=== PATIENT | female | born 2000 | race Caucasian/White ===

== ENCOUNTER → 2021-05-26 15:59 | Outpatient (CLI) | payer OTHER, SELFPAY ==
--- NOTE | 2021-05-26 | DI.US.S_ITS ---
PROCEDURE: US OB >= 14 WEEKS FETUS INDICATIONS: 20 WEEK ANATOMY SCAN OUTSIDE/PRIOR DATING DATA: Last menstrual period (LMP): January 04, 2021. LMP-based estimated date of delivery (BRENDA): October 11, 2021. First dating scan (date and location): May 26, 2021. Estimated date of delivery (BRENDA) from first dating scan: October 13, 2021. TECHNIQUE: Real-time scanning was performed of the fetus, with image documentation and biometric measurements. Endovaginal scanning: Perform COMPARISON: None. FINDINGS: General: A single living intrauterine gestation is present. Presentation: Variable Placenta: Placental position is posterior, without previa. Amniotic fluid index: 11 point cm, normal range is 5-24 cm. heart rate: 163 beats per minute. Maternal cervical canal: Closed and 4.0 cm long. Normal lower limit is 2.5 cm. biometrics: Biparietal diameter: 19 weeks 3 days Head circumference: 20 weeks 0 days Abdominal circumference: 20 weeks 0 days Femur length: 20 weeks 2 days Estimated gestational age from initial scan: not applicable. Composite gestational age from present scan: 20 weeks 0 days to ultrasound BRENDA of October 13, 2021. Estimated weight and percentile: 331 grams; 34th percentile. Measurement variability for biometric dating: +/- 7 days from 14 weeks to 15 weeks 6 days gestation, +/- 10 days from 16 weeks to 21 weeks 6 days gestation, +/- 2 weeks from 22 weeks to 27 weeks 6 days gestation, +/- 3 weeks for 28 weeks gestation or later. weight reference: 4500 g or EFW >90/95% is considered macrosomia or large for gestational age. EFW <10% is small for gestational age. EFW 5% or less is considered intra-uterine growth restriction. Anatomic survey: Neuro: Ventricles are non-dilated at less than 10 mm. Cisterna magna is normal at 3-11 mm. Cerebellum is normal in size and morphology. Nuchal skin fold: Normal at less than 6 mm between 14-21 weeks gestational age. Face: Nose and lips, facial profile are normal. Spine: No evidence for spina bifida. Heart: 4-chambered heart is present. The ventricular outflow tracts are suboptimally visualized and cannot be evaluated.. Diaphragm: Diaphragm is intact. Stomach: Left-sided stomach is present. Kidneys: No hydronephrosis. Normal is less than 5 mm in 2nd trimester, less than 7 mm in 3rd trimester. Cord: 3-vessel cord. Placental cord insertion is poorly visualized and cannot be evaluated. Bladder: Normal in size. Extremities: All 4 extremities identified. IMPRESSION: 1. Single living intrauterine with ultrasound estimated gestational age of 20 weeks 0 days corresponding to ultrasound BRENDA of October 13, 2021. 2. cardiac outflow tracts and placental insertion of umbilical cord not well visualized and cannot be evaluated. Recommend short-term follow-up limited obstetrical ultrasound. Otherwise, normal anatomic survey. Dictated by: Camila Lomeli MD, PhD on 05/27/2021 at 11:57 Approved by: Camila Lomeli MD, PhD on 05/27/2021 at 12:03
== END ==
PROVIDERS: Referring Provider Nurse Practitioner Obstetrics & Gynecology; Visit Provider Nurse Practitioner Obstetrics & Gynecology
DX: Z34.92 Encounter for supervision of normal pregnancy, unspecified, second trimester (principal); Z3A.20 20 weeks gestation of pregnancy
CPT/HCPCS: 76811

== ENCOUNTER → 2021-06-24 09:48 | Outpatient (CLI) | payer OTHER, SELFPAY ==
--- NOTE | 2021-06-24 | DI.US.S_ITS ---
PROCEDURE: US OB FOLLOW UP INDICATIONS: ANATOMY FOLLOW UP OUTSIDE/PRIOR DATING DATA: Last menstrual period (LMP): 01/04/2021 . LMP-based estimated date of delivery (BRENDA): 10/11/2021 . First dating scan (date and location): 05/26/2021 . Estimated date of delivery (BRENDA) from first dating scan: 10/13/2021 . TECHNIQUE: Real-time scanning was performed of the fetus, with image documentation and biometric measurements. Endovaginal scanning: No COMPARISON: [facility], OB >= 14 WEEKS FETUS, 05/26/2021, 16:14. FINDINGS: General: A single living intrauterine gestation is present. Presentation: Vertex. Placenta: Placental position is posterior , without previa. Amniotic fluid index: 15.4 cm, normal range is 5-24 cm. heart rate: 163 beats per minute. Maternal cervical canal: 4.4 cm long. Normal lower limit is 2.5 cm. Anatomic survey: Limited survey of anatomy currently includes normal four-chamber heart view, left and right ventricular outflow tracts, chest/diaphragm, stomach/abdomen, placental cord insertion, bilateral renal regions, and urinary bladder/pelvis. IMPRESSION: 1. Single living intrauterine gestation. 2. Limited normal survey of anatomy as above. Dictated by: Collins Castellanos M.D. on 06/24/2021 at 11:34 Approved by: Collins Castellanos M.D. on 06/24/2021 at 11:37
== END ==
PROVIDERS: Referring Provider Nurse Practitioner Obstetrics & Gynecology; Visit Provider Nurse Practitioner Obstetrics & Gynecology
DX: Z36.2 Encounter for other antenatal screening follow-up (principal)
CPT/HCPCS: 76816; 76817

== ENCOUNTER 2021-09-24 09:14 | Inpatient (IN) | payer OTHER, MEDICAID, SELFPAY ==
--- NOTE | 2021-09-24 09:47 | P.HPOB_ITS ---
OB HPI Date/Time Date of admission: 09/24/21 Date Patient Seen: 09/24/21 Time Patient Seen: 09:47 History of Present Condition Chief complaint: : 2 Para: 1 Estimated Date of Delivery: 10/11/21 Estimated Gestational Age (weeks): 37.4 Narrative: Sonia Singh is a 20 year old female @ [id number] by LMP and 10 wk US. Mild contractions all night getting stronger around 5am. +FM. No VB or LOF. Uncomplicated PN care w/ CNM. Canceled her appt last week as she was COVID positive at home. GBS unknown. Checked in clinic immediately prior to admission-> CE /-2, BBOW. History of Present care: good care, initiated at week # (10), number of visits (6) and pounds weight gain (23) Dating criteria: LMP confirmed by 1st trimester US Ultrasounds: normal mid trimester US Obstetrical complications: none Medical complications: none Preadmission Labs Blood type: A (+) positive -: Antibody screen: negative, GBS status: unknown, HBsAG: negative, HIV: negative and RPR/VDLR: negative -: Chlamydia screen: not detected and Gonorrhea screen: not detected -: Rubella: not immune and Varicella: not immune HCT: 31.6 HCAB: negative PAP: Normal Cell-free DNA: Negative, male 1 hr GTT: 107 Prior (ies) History: 03/30/2019: NSVB @ 38.5wks, 7#8oz male, epidural, 2nd degree Evaluation Evaluation Baseline heart rate: 140 Variability: Moderate (11-25) monitor accelerations: Present Monitor Decelerations: Absent Contraction Frequency (minutes): 2 Uterine Contraction Intensity: Strong/Firm Status: Category l Dilation (cm): 4 Effacement (%): 90 station: -2 Comments: BBOW [facility] Social History (Updated 09/24/21 @ 09:59 by Luciana Brown CNM) marital status: unmarried,living together number of children: 1 household members: significant other and children lives independently: Yes caregiver/support person: No Smoking Status: Never smoker Meds Home Medications and Allergies Allergies Allergy/AdvReac Type Severity Reaction Status Date / Time No Known Drug Allergies Allergy Verified 09/24/21 09:52 Review of Systems Review of Systems ROS: Yes All systems reviewed with the patient and are negative except as otherwise documented OB Exam Resp Effort & Inspection: normal respiratory effort Auscultation: clear to auscultation bilaterally Cardio Rate: regular rate Rhythm: regular rhythm Heart Sounds: S1 normal and S2 normal Presentation: vertex Assessment and Plan Assessment and Plan Assessment and Plan narrative: A: Term primipara Active labor GBS prophylaxis indicated Rubella NONimmune Cat I FHR P: Routine admit orders w/ rapid COVID and GBS. PCN for prophylaxis. Labor support, PRN. Reassess after adequate treatment or sooner, PRN. MMR vaccine PP.
[2021-09-24 10:17] LABS: Add Manual Diff / Slide Review NO; Basophils Absolute Auto 100 /uL (0-100); Eosinophils Absolute Auto 0 /uL (0-450); Eosinophils Percent Auto 0.1 % (2-4); Hematocrit 34.5 % (36-46); Hemoglobin 10.8 g/dL (12.0-16.0); Lymphocytes Absolute Auto 3300 /uL (1100-4500); Lymphocytes Percent Auto 24.7 % (25-40); Mean Corpuscular HGB Conc 31.5 % (30-36); Mean Corpuscular Hemoglobin 21.5 PG (26-34); Mean Corpuscular Volume 68.3 fL (80-100); Monocytes Absolute Auto 800 /uL (0-900); Monocytes Percent Auto 5.6 % (3-14); Neutrophils Absolute Auto 9200 /uL (1500-7000); Neutrophils Percent Auto 68.6 % (50-75); Platelet Count 297 X10^3/uL (150-400); Red Blood Cell Count 5.05 X10^6/uL (4.0-5.2); Red Cell Distribution Width 16.5 % (11.6-14.8); White Blood Cell Count 13.4 X10^3/uL (4.5-11.0)
[2021-09-24 10:31] LABS: COVID19 -Nasal RAPID POSITIVE (Negative)
[2021-09-24 10:34] LABS: Microcytosis 2+; Polychromasia 1+
[2021-09-24] MEDS: PENICILLIN G POTASSIUM 5,000,000 UNIT in DEXTROSE 5% IN WATER 250 ML IV (10:41)
[2021-09-24] MEDS: LACTATED RINGERS 1,000 ML 100 ML IV ×2 (10:42→12:43)
[2021-09-24 11:29] LABS: Strep Grp B PCR NEG for Grp B Strep
[2021-09-24] MEDS: CALCIUM CARBONATE 500 MG TAB 1000 MG PO (14:45)
--- NOTE | 2021-09-24 15:17 | P.PCNOB_ITS ---
Labor & Delivery Delivery date: 09/24/21 Intrapartal Events: None Cervical ripening method: none Induction method: none Delivery monitor: external FHT and external uterine Route of delivery: Episiotomy description: None L&D Laceration Description: None Estimated blood loss (mL): 150 Anesthesia Type: Epidural Narrative: Sonia progressed rapidly to 9cm, at which time progress slowed and she requested an epidural. Labor continued to progress slowly d/t OP positioning. Complete dilation and +1 station was noted at 1434. SROM, clear fluid during second push. NSVB of a vigorous baby boy in MARYCARMEN position over an intact perineum. There was no nuchal cord and the shoulders delivered without additional maneuvers. [place] was placed on maternal abdomen for drying and skin to skin. 10 units of pitocin was added to remaining LR for AMTSL. After cessation of pulsation, the cord was double clamped by CNM and cut by FOB. Cord blood sample was collected. Gentle cord traction and single maternal push led to spontaneous, Schultze delivery of an apparently intact placenta, membranes and 3VC. Fundus immediately firm and bleeding minimal. QBL 150mL. Both mother and baby stable and skin to skin as I left the room. [place] Baby 1: gender: Male Presentation: vertex Position: Left Occiput Anterior Placenta delivery description: Spontaneous Cord Vessel Description: 3 Vessels score (1 min): 9 score (5 min): 9 weight: 3.718 kg Plan for aftercare: Routine care
[2021-09-24] MEDS: KETOROLAC 30 MG/ML VIAL IV (16:05)
[2021-09-24] MEDS: ACETAMINOPHEN 325 MG TABLET 650 MG PO (23:33)
[2021-09-24] MEDS: IBUPROFEN 600 MG TABLET PO (23:34)
[2021-09-24] MEDS: LANOLIN OINT 7 GM 1 APPLIC TOP (23:34)
[2021-09-25] MEDS: ACETAMINOPHEN 325 MG TABLET 650 MG PO (08:37)
[2021-09-25] MEDS: IBUPROFEN 600 MG TABLET PO (08:37)
--- NOTE | 2021-09-25 08:52 | P.DS_ITS ---
Discharge Providers Provider Date of admission: 09/24/21 09:14 Discharge Date: 09/25/21 Consults: 09/25/21 15:16 Consult to Automobile Accessories Installer Routine Comment: Discharge provider: Luciana Brown CNM Summary Hospital Course Date Patient Seen: 09/25/21 Time Patient Seen: 08:53 Diagnoses: o80 Hospital Course: PPD1 s/p NSVB. Sonia is voiding, ambulating and independently. Pain is minimal and well controlled w/ PO medication. Tolerating a general diet. Vaginal bleeding is light and without clots. Partner remains present and supportive. She is feeling ready for discharge to home. Peripartum Data Infant Delivery Method: Natural Vaginal Laceration Description: None Episiotomy description: None Procedures: o80 complications: none 1: Gender: Male Disposition of : home Status at Discharge Cognitive/behavioral status at discharge: oriented and calm Functional status at discharge: independent ambulation Overall status at discharge: patient is back to baseline Time Spent with Patient Time attestation: Total time spent providing and/or coordinating discharge services: Time spent: Less than 30 minutes Objective Labs Result Diagrams: 09/24/21 10:10 Labs: Laboratory Results - last 24 hr 09/24/21 09/24/21 09/24/21 09:46 09:47 10:10 WBC 13.4 H RBC 5.05 Hgb 10.8 L Hct 34.5 L MCV 68.3 L MCH 21.5 L MCHC 31.5 RDW 16.5 H Plt Count 297 Neut % (Auto) 68.6 Lymph % (Auto) 24.7 L [place] % (Auto) 5.6 Eos % (Auto) 0.1 L Baso % (Auto) 1.0 Neut # (Auto) 9200 H Lymph # (Auto) 3300 [place] # (Auto) 800 Eos # (Auto) 0 Baso # (Auto) 100 RBC Morphology Not Reportable Polychromasia 1+ H Microcytosis 2+ H SARS-CoV-2 (PCR) Positive H Group B Strep (PCR) Neg for grp b strep Blood Type Antibody Screen 09/24/21 10:10 WBC RBC Hgb Hct MCV MCH MCHC RDW Plt Count Neut % (Auto) Lymph % (Auto) [place] % (Auto) Eos % (Auto) Baso % (Auto) Neut # (Auto) Lymph # (Auto) [place] # (Auto) Eos # (Auto) Baso # (Auto) RBC Morphology Polychromasia Microcytosis SARS-CoV-2 (PCR) Group B Strep (PCR) Blood Type O Positive Antibody Screen Negative Exam Vital Signs (past 8 hours): BP 105/61mmHg, HR 66bpm, RR 16/min, T 98.0F Axillary Other: Fundus firm @ U-1, lochia scant, no clots, perineum intact Discharge Plan Discharge Plan Patient Disposition: Home Provider Discharge Comment: Continue quarantine at home Discharge orders & Medications Follow up/Referrals: Luciana Brown CNM [[employer] Attorney] - (Follow-up 10/09/21 @ 10:30am by Telehealth Follow-up 11/05/21 @ 10:00am in office) Diet/Activity/Treatments Diet: Diet as Tolerated and Regular Activity: pelvic rest x 6 weeks Skin/Wound/Dressing Care Report to your healthcare provider any signs of infection, such as:: chills, fever, increased pain, unusual drainage and unusual redness
[2021-09-25] MEDS: MEASLES,MUMPS,RUBELLA VACC/PF 0.5 ML VIAL SUBCUT (09:51)
[2021-09-25 10:59] VITALS: BP 108/68; PULSE 82; RESP 16; TEMP 36.9
== END 2021-09-25 13:30 | disposition home or self-care (01) | DRG 805 ==
PROVIDERS: Admitting Provider Nurse Practitioner Obstetrics & Gynecology; Referring Provider Nurse Practitioner Obstetrics & Gynecology; Visit Provider Nurse Practitioner Obstetrics & Gynecology
DX: O98.52 Other viral diseases complicating childbirth (principal); U07.1 COVID-19; Z37.0 Single live birth; Z3A.37 37 weeks gestation of pregnancy; O42.02 Full-term premature rupture of membranes, onset of labor within 24 hours of rupture
CPT/HCPCS: 01967; 36415; 59050; 85025; 86850; 86900; 86901; 87081; 87635; 87653; C9803; G0379; J0171; J1885; J2540

== ENCOUNTER → 2024-05-15 15:05 | Outpatient (CLI) | payer OTHER, MEDICAID, SELFPAY ==
--- NOTE | 2024-05-15 15:07 | DI.US.S_ITS ---
PROCEDURE: US PELVIC COMPLETE INDICATIONS: DUB TECHNIQUE: Real-time scanning was performed of the pelvic organs, with image documentation. Additional endovaginal scanning was necessary due to incomplete visualization of the adnexal and endometrial structures by transabdominal scanning. COMPARISON: None. FINDINGS: Uterus: Uterus is anteverted and normal in size at 8.4 x 4.4 x 5.9 cm. The myometrium is homogeneous. The endometrium measures 9.3 mm combined thickness. Ovaries: The right ovary measures 4.1 x 2.6 x 3.7 cm, with a calculated ovarian volume of 20.8 cc. The left ovary measures 3.2 x 1.9 x 1.4 cm, with a calculated ovarian volume of 4.6 cc. The ovaries have a normal sonographic appearance. Less than 12 follicles can be seen in each ovary. No adnexal masses are seen. There is a simple right ovarian cyst measuring up to 2.2 cm. There is a right ovarian complex cystic structure measuring 3.2 x 1.6 x 3.0 cm with possible area of nonvascular tissue nodularity versus interfacing ovarian stroma. Other: No pathologic free abdominal or pelvic fluid. IMPRESSION: Right ovarian complex cystic structure measuring up to 3.2 cm with area of possible nonvascular tissue nodularity versus interfacing ovarian stroma. Recommend short interval follow-up with pelvic ultrasound in 6-12 weeks. Approved by: Nicole Lewis M.D.,Ph.D. on 05/15/2024 at 17:25
== END ==
LOC: US 15:06
PROVIDERS: Referring Provider Nurse Practitioner Obstetrics & Gynecology; Visit Provider Nurse Practitioner Obstetrics & Gynecology
DX: N92.1 Excessive and frequent menstruation with irregular cycle (principal); N83.291 Other ovarian cyst, right side
CPT/HCPCS: 76830; 76856

== ENCOUNTER → 2024-07-05 16:46 | Outpatient (CLI) | payer OTHER, MEDICAID, SELFPAY ==
--- NOTE | 2024-07-05 16:47 | DI.US.S_ITS ---
PROCEDURE: US OB <= 14 WEEKS FETUS INDICATIONS: DATING AND VIABILITY / F/U RT OVARIAN CYST OUTSIDE/PRIOR DATING DATA: Last menstrual period (LMP): 04/26/2024. LMP-based estimated date of delivery (BRENDA): 01/31/2025. First dating scan (date and location): 07/05/2024. Estimated date of delivery (BRENDA) from first dating scan: 02/06/2025. The calculations are made using the clinical BRENDA of 01/31/2025. TECHNIQUE: Real-time scanning was performed of the fetus and maternal pelvic organs, with image documentation. Endovaginal scanning was also performed to better visualize the fetus and maternal ovaries. COMPARISON: [facility], , PELVIC COMPLETE, 05/15/2024, 15:40. FINDINGS: Embryo: pole is identified with crown-rump length measuring 2.4 cm, consistent with 9 weeks and 1 day. Heart rate: 163 beats per minute Maternal organs: Ovaries are within normal limits. Right ovarian corpus luteal cyst. Prior complex right ovarian cyst appears to have resolved. IMPRESSION: 1. Single live intrauterine consistent with 9 weeks and 1 day. 2. Prior complex right ovarian cyst appears to have resolved. Right ovarian corpus luteal cyst is present. We strive to produce accurate, complete, and clear reports of imaging services. To assist us in improving patient care, this report was composed using standard report templates and voice recognition software. Therefore, it may contain abnormal punctuation, insertions and/or omissions. Occasional wrong-word or sound-alike substitutions may occur. Though we review the report and make efforts to correct it, we do recommend that the report be read carefully in proper context to recognize any text inaccuracies Dictated by: César Eaton M.D. on 07/06/2024 at 9:27 Approved by: César Eaton M.D. on 07/06/2024 at 9:29
== END ==
PROVIDERS: Referring Provider Nurse Practitioner Obstetrics & Gynecology; Visit Provider Nurse Practitioner Obstetrics & Gynecology
DX: O26.851 Spotting complicating pregnancy, first trimester (principal); O34.81 Maternal care for other abnormalities of pelvic organs, first trimester; N83.11 Corpus luteum cyst of right ovary; Z3A.09 9 weeks gestation of pregnancy
CPT/HCPCS: 76801

== ENCOUNTER → 2024-09-27 15:03 | Outpatient (CLI) | payer OTHER, SELFPAY ==
--- NOTE | 2024-09-27 15:05 | DI.US.S_ITS ---
PROCEDURE: US OB >= 14 WEEKS FETUS INDICATIONS: 20WK ANATOMY SCAN OUTSIDE/PRIOR DATING DATA: Last menstrual period (LMP): 04/26/2024 LMP-based estimated date of delivery (BRENDA): 01/31/2025 First dating scan (date and location): 07/05/2024 Estimated date of delivery (BRENDA) from first dating scan: 02/06/2025 The calculations are made using the clinical BRENDA of 01/31/2025 TECHNIQUE: Real-time scanning was performed of the fetus, with image documentation and biometric measurements. Endovaginal scanning: Not performed COMPARISON: [facility], OB >= 14 WEEKS FETUS, 05/26/2021, 16:14. [facility], OB <= 14 WEEKS FETUS, 07/05/2024, 16:52. FINDINGS: General: A single living intrauterine gestation is present. Presentation: Vertex Placenta: Placental position is posterior, without previa. Amniotic fluid index: 16.6 cm, normal range is 5-24 cm. Single deepest vertical pocket is 5.8 cm. heart rate: 149 beats per minute. Maternal cervical canal: 4.1 cm long. Normal lower limit is 2.5 cm. biometrics: Biparietal diameter: 5.1 cm, 21 weeks 3 days Head circumference: 19.4 cm, 21 weeks 4 days Abdominal circumference: 15.9 cm, 21 weeks 0 days Femur length: 3.4 cm, 20 weeks 5 days Clinically estimated gestational age: 22 weeks 0 days Composite gestational age from present scan: 21 weeks 1 day Estimated weight and percentile: 390 g, 7th percentile Anatomic survey: Neuro: Ventricles are non-dilated at less than 10 mm. Cisterna magna is normal at 3-11 mm. Cerebellum is normal in size and morphology. Nuchal skin fold: Normal at less than 6 mm between 14-21 weeks gestational age. Face: Nose and lips, facial profile are normal. Spine: No evidence for spina bifida. Heart: 4-chambered heart is present, with normal ventricular outflow tracts. Diaphragm: Diaphragm is intact. Stomach: Left-sided stomach is present. Kidneys: No hydronephrosis. Normal is less than 5 mm in 2nd trimester, less than 7 mm in 3rd trimester. Cord: 3-vessel cord has orthotopic insertion. Bladder: Normal in size. Extremities: All 4 extremities identified. IMPRESSION: 1. Single live intrauterine . 2. Estimated weight is at the 7th percentile for gestational age based on clinical dates. 3. anatomic survey is within normal limits. Approved by: Wilmer Curry M.D. on 09/27/2024 at 19:35
== END ==
PROVIDERS: Referring Provider Advanced Practice Midwife; Visit Provider Advanced Practice Midwife
DX: Z34.92 Encounter for supervision of normal pregnancy, unspecified, second trimester (principal); Z3A.21 21 weeks gestation of pregnancy
CPT/HCPCS: 76811

== ENCOUNTER 2025-01-29 19:39 | Inpatient (IN) | payer OTHER, SELFPAY ==
[2025-01-29 20:00] VITALS: BP 131/79
--- NOTE | 2025-01-29 20:05 | PM.OBHP.1 ---
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 Irregular contractions all day, slowly progressing in frequency and intensity. Seen in clinic 2 hours ago for evaluation of asme with CE /-2. Now breathing through strong contractions every 5 minutes. +FM. No VB or LOF. PN care with CNMs complicated by iron deficiency anemia for which she received IV Fe at 29wks EGA. Also initiated treatment for a UTI yesterday in clinic with +UA results and culture pending. Planning unmedicated . Partner, Mauricio, is present and supportive. History of Present care: good care, initiated at week # (9), number of visits (9) and pounds weight gain (29) Dating criteria: based on 1st trimester US only Ultrasounds: normal mid trimester US Obstetrical complications: none Medical complications: other (anemia) Preadmission Labs Blood type: O (+) positive -: Antibody screen: negative, GBS status: negative, HBsAG: negative, HIV: negative and RPR/VDLR: negative -: Chlamydia screen: not detected and Gonorrhea screen: not detected -: Rubella: immune and Varicella: not immune HCT: 36.1 HCAB: negative 1 hr GTT: 138 Prior (ies) History: 03/30/2019- NSVB @ 38wks 5 days, NSVB, epidural, 2nd degree lac, 7lb 8oz, male 09/24/2021- NSVB @ 38wls 0 days, NSVB, epidural, Intact, 8lbs 3oz, male Hx # Term Pregnancies: 2 Hx # Pregnancies: 0 Number of Living Children: 2 Multiple births: 0 Spontaneous abortions: 0 Ectopic pregnancies: 0 Elective abortions: 0 Evaluation Evaluation Baseline heart rate: 135 Variability: Moderate (6-25) monitor accelerations: Present Monitor Decelerations: Early Contraction Frequency (minutes): 2 Uterine Contraction Intensity: Strong/Firm Status: Category l Dilation (cm): 4.5 Effacement (%): 90 Dilation: >/=5 cm Effacement: >/=80% station: -1 Position of cervix: posterior Consistency: soft Joy score: 10 [facility] Medical History (Updated 01/29/25 @ 20:16 by Luciana Brown CNM) Anxiety Social History (Updated 09/24/21 @ 09:59 by Luciana Brown CNM) marital status: unmarried,living together number of children: 1 household members: significant other and children lives independently: Yes caregiver/support person: No Smoking Status: Former smoker Meds Home Medications and Allergies Home Medications ?Medication ?Instructions ?Recorded ?Confirmed ?Type amoxicillin 875 mg-potassium 1 tab PO BID 01/29/25 01/29/25 History clavulanate 125 mg tablet vitamin-ferrous sulfate 1 tab PO DAILY 01/29/25 01/29/25 History 27 mg iron-folic acid 0.8 mg tablet Allergies Allergy/AdvReac Type Severity Reaction Status Date / Time No Known Drug Allergies Allergy Verified 01/29/25 22:33 Review of Systems Review of Systems ROS: Yes All systems reviewed with the patient and are negative except as otherwise documented OB Exam Vital signs Blood Pressure: 131/79 Pulse Rate: 97 Temperature: 36.4 F Resp Effort & Inspection: normal respiratory effort and able to speak in complete sentences Auscultation: clear to auscultation bilaterally Cardio Rate: regular rate Rhythm: regular rhythm Heart Sounds: S1 normal and S2 normal Presentation: vertex Objective Labs 01/29/25 20:20 Assessment and Plan Assessment and Plan Assessment and Plan narrative: A: Term multipara Approaching active labor Acute cystitis Cat I FHR P: Admit, routine labor orders. Expectant management of labor. Continue previously prescribed oral antibiotics for her UTI. Labor support, PRN. Reassess in 4 hours or sooner, PRN. Time-Based Coding :: [TOTAL MINUTES] spent with patient and on the chart (including review of chart, obtaining history, exam, reviewing outside data, placing orders, documenting exam and treatment plan, and counseling patient) on [DATE].
[2025-01-29 20:19] VITALS: BP 131/79; PULSE 97; TEMP 2.4; TEMP 36.4
[2025-01-29 20:31] LABS: Add Manual Diff / Slide Review NO; Basophils Absolute Auto 100 /uL (0-100); Basophils Percent Auto 0.5 % (0-2); Eosinophils Absolute Auto 0 /uL (0-450); Eosinophils Percent Auto 0.2 % (2-4); Hematocrit 39.4 % (36-46); Lymphocytes Absolute Auto 2600 /uL (1100-4500); Lymphocytes Percent Auto 21.5 % (25-40); Mean Corpuscular Hemoglobin 27.1 PG (26-34); Mean Corpuscular Volume 82.1 fL (80-100); Monocytes Absolute Auto 700 /uL (0-900); Neutrophils Absolute Auto 8500 /uL (1500-7000); Neutrophils Percent Auto 71.8 % (50-75); Platelet Count 203 X10^3/uL (150-400); Red Cell Distribution Width 17.9 % (11.6-14.8); White Blood Cell Count 11.9 X10^3/uL (4.5-11.0)
[2025-01-29] MEDS: AMOXICILLIN/CLAV 875/125 MG 1 TAB PO (22:09)
--- NOTE | 2025-01-30 00:31 | PM.OBPRVD ---
Labor & Delivery Delivery date: 01/30/25 Delivery Time: 00:05 Intrapartal Events: None Cervical ripening method: none Induction method: none Delivery monitor: external FHT and external uterine Route of delivery: Episiotomy description: None L&D Laceration Description: None Quantitative Blood Loss: 100 Anesthesia Type: Other (NO2) Narrative: Spontaneous labor progressed rapidly without augmentation. Using NO2 for anesthesia, Sonia was presumed complete with spontaneous urge to push and coached with pushing. SROM for clear fluid occurred with first push. NSVB of a vigorous baby boy in MARYCARMEN position. There was a single loose nuchal cord and the shoulders delivered without additional maneuvers. Sonia was in hands and knees position, so her son was passed through her legs when she was ready to receive him and she was assisted to a recumbent position with her son in her arms. Pitocin was started, per protocol, for AMTSL. After cessation of pulsation, the cord was double clamped by CNM and cut by FOB. Gentle cord traction and a single maternal push led to spontaneous, Schultze delivery of an apparently intact placenta, membranes and 3VC. Fundus immediately firm and bleeding scant. Vagina and perineum inspected and intact. QBL 100mL. Both mother and baby stable and skin to skin as I left the room. Baby 1: Infant gender: Male Presentation: vertex Position: Left Occiput Anterior Placenta delivery description: Spontaneous and Normal Configuration Cord Vessel Description: 3 Vessels, Nuchal Cord and Loose score (1 min): 9 score (5 min): 9 weight: 3.627 kg Plan for aftercare: Routine care
[2025-01-30 00:57] VITALS: TEMP 36.1
[2025-01-30] MEDS: KETOROLAC 30 MG/ML VIAL IV (00:57)
[2025-01-30] MEDS: ACETAMINOPHEN 325 MG TABLET 650 MG PO ×4 (00:58→19:06)
[2025-01-30] MEDS: IBUPROFEN 600 MG TABLET PO ×3 (06:33→19:06)
[2025-01-30] MEDS: AMOXICILLIN/CLAV 875/125 MG 1 TAB PO (08:58)
[2025-01-30] MEDS: DOCUSATE 100 MG CAPSULE PO (09:01)
[2025-01-30] MEDS: WITCH HAZEL/GLYCERIN PADS 1 EACH TOP (12:55)
[2025-01-30] MEDS: DERMOPLAST SPRAY 20% 60 ML 1 SPRAY TOP (12:55)
--- NOTE | 2025-01-30 14:43 | PM.OBDS.1 ---
Discharge Providers Provider Date of admission: 01/29/25 19:39 Discharge Date: 01/30/25 Primary care physician: STACIE Rae CNM Consults: 01/30/25 00:46 Consult to Furniture Fabricator Routine Comment: Discharge provider: Luciana Brown CNM Summary Hospital Course Date Patient Seen: 01/30/25 Time Patient Seen: 14:43 Diagnoses: O80 Hospital Course: Spontaneous labor resulted in NSVB of a healthy baby boy. 14hrs s/p NSVB Sonia is voiding, ambulating and independently. Tolerating a general diet. Pain is well controlled with PO medication. Her vaginal bleeding is light to moderate, without clots. She is eager for discharge to home with her and baby. Peripartum Data Infant Delivery Method: Natural Vaginal Laceration Description: None Episiotomy description: None Procedures: O80 complications: UTI (diagnosed 01/28/2025 prior to labor) 1: Gender: Male Disposition of : home Discharge Diagnosis (1) Encounter for full-term uncomplicated delivery: Start Date: 01/30/25 Start Time: 00:05 Status: Acute Problem Details: Routine course Status at Discharge Cognitive/behavioral status at discharge: oriented and calm Functional status at discharge: independent ambulation Overall status at discharge: patient is progressing back to baseline Time Spent with Patient Time attestation: Total time spent providing and/or coordinating discharge services: Objective Labs 01/29/25 20:20 Labs: Laboratory Results - last 24 hr 01/29/25 20:20 WBC 11.9 H RBC 4.80 Hgb 13.0 Hct 39.4 MCV 82.1 MCH 27.1 MCHC 33.0 RDW 17.9 H Plt Count 203 Neut % (Auto) 71.8 Lymph % (Auto) 21.5 L [place] % (Auto) 6.0 Eos % (Auto) 0.2 L Baso % (Auto) 0.5 Neut # (Auto) 8500 H Lymph # (Auto) 2600 [place] # (Auto) 700 Eos # (Auto) 0 Baso # (Auto) 100 Blood Type O Positive Antibody Screen Negative Exam Vital Signs (past 8 hours): BP 107/66, HR 78bpm, RR 15, T 97.7F Temporal, SpO2 97% on RA Other: Fundus firm @U-1, lochia small without clots. Perineum intact. Psych Appearance: grossly normal Mental Status: mental status grossly normal Mood: congruent mood Affect: normal affect Discharge Plan Discharge Plan Patient Disposition: Home Discharge orders & Medications Prescriptions: New ibuprofen 600 mg Tablet 600 mg PO Q6H 14 Days Qty: 56 0RF Continued amoxicillin-pot clavulanate 875-125 mg tablet 1 tab PO BID vit-ferrous sulfat-FA 27 mg iron- 0.8 mg tablet 1 tab PO DAILY Follow up/Referrals: Luciana Brown CNM [[employer], [employer]] Referral Note: Follow-up in 2 weeks and 6 weeks as scheduled. Appointments are in your email. Diet/Activity/Treatments Diet: Diet as Tolerated and Regular Activity: bed rest x 2 weeks, no heavy lifting x 4 weeks, pelvic rest x 6 weeks Skin/Wound/Dressing Care Report to your healthcare provider any signs of infection, such as:: chills, fever, increased pain, unusual drainage and unusual redness Visit Report/Discharge Packet Instructions: DI for Hemorrhage, DI for Depression Stand Alone Forms: Discharge: Care, Patient Portal/API, Stroke Signs & Symptoms
== END 2025-01-30 20:07 | disposition home or self-care (01) | DRG 807 ==
PROVIDERS: Admitting Provider Nurse Practitioner Obstetrics & Gynecology; Referring Provider Nurse Practitioner Obstetrics & Gynecology; Visit Provider Nurse Practitioner Obstetrics & Gynecology
DX: O23.13 Infections of bladder in pregnancy, third trimester (principal); Z37.0 Single live birth; N30.90 Cystitis, unspecified without hematuria; Z3A.38 38 weeks gestation of pregnancy; O99.02 Anemia complicating childbirth; D50.9 Iron deficiency anemia, unspecified
CPT/HCPCS: 36415; 59050; 85025; 86850; 86900; 86901; G0379; J1885